=== PATIENT | female | born 1985 | race African-American/Black ===

== ENCOUNTER 2017-02-20 09:26 | Inpatient (IN) | payer OTHER ==
[~2017-02-20] VITALS: Ht 160 cm; Wt 81.0 kg
[2017-02-20] VITALS (7 sets, daily range): BP systolic 119–127; BP diastolic 62–70
[~2017-02-20 09:26] MED LIST: ENDOCET 5-3251 EACH PO; Motrin PO; NOHOMEMEDS; PRENATAL TABLE1 EAC3 PO; TAMIFLU75 MG PO; VENTOLIN HFA18 GM IH
[2017-02-20 11:42] LABS: EOSINOPHIL (%) 2.1 % (0-5); EOSINOPHIL COUNT 0.1 K/uL (0-0.3); HEMATOCRIT 30.3 % (36.0-46.0); IMMATURE GRANULOCYTE (%) 1.1 % (0.0-0.7); IMMATURE GRANULOCYTE COUNT 0.1 K/uL; INSTRUMENT ABS NEUTROPHIL CT 3.8 K/uL; LYMPHOCYTE COUNT 1.5 K/uL (1.0-2.8); MCH 26.2 PG (29.0-34.0); MCHC 32.3 G/DL (30.0-36.0); MEAN PLAT.VOLUME 9.3 uM^3 (9.5-12.4); MONOCYTE (%) 12.4 % (3-12); MONOCYTE COUNT 0.8 K/uL (0-0.8); NEUTROPHIL (%) 60.7 % (45-76); NEUTROPHIL COUNT 3.8 K/uL (1.8-6.4); PLATELET COUNT 231 K/uL (156-360); RBC DIS.WIDTH-CV 14.6 % (11.8-14.6); RBC DIS.WIDTH-SD 43.3 % (39-53); RED BLOOD COUNT 3.74 M/uL (3.80-5.20); WHITE BLOOD COUNT 6.3 K/uL (4.1-10.2)
[2017-02-20 12:46] LABS: METH RESISTANT S AUREUS PCR NEGATIVE (NEGATIVE)
[2017-02-20 12:49] LABS: PROBE CHECK PASS; SPECIMEN PROCESSING CONTROL PASS
[2017-02-21 00:30] VITALS: BP 109/55
[2017-02-21 01:30] VITALS: BP 123/63
[2017-02-21 07:29] VITALS: BP 120/56
[2017-02-21 07:58] LABS: EOSINOPHIL (%) 0.8 % (0-5); EOSINOPHIL COUNT 0.1 K/uL (0-0.3); HEMATOCRIT 26.8 % (36.0-46.0); IMMATURE GRANULOCYTE (%) 0.5 % (0.0-0.7); IMMATURE GRANULOCYTE COUNT 0.1 K/uL; INSTRUMENT ABS NEUTROPHIL CT 7.5 K/uL; LYMPHOCYTE COUNT 1.1 K/uL (1.0-2.8); MCH 25.1 PG (29.0-34.0); MCHC 31.7 G/DL (30.0-36.0); MCV 79.3 FL (83-99); MEAN PLAT.VOLUME 9.5 uM^3 (9.5-12.4); MONOCYTE (%) 11.9 % (3-12); MONOCYTE COUNT 1.2 K/uL (0-0.8); NEUTROPHIL (%) 75.6 % (45-76); NEUTROPHIL COUNT 7.5 K/uL (1.8-6.4); NRBC (%) 0.2 /100 WBC (0-0); PLATELET COUNT 214 K/uL (156-360); RBC DIS.WIDTH-CV 14.6 % (11.8-14.6); RBC DIS.WIDTH-SD 41.6 % (39-53); RED BLOOD COUNT 3.38 M/uL (3.80-5.20); WHITE BLOOD COUNT 9.9 K/uL (4.1-10.2)
[2017-02-21 11:22] VITALS: BP 120/58
[2017-02-21 15:47] VITALS: BP 118/58
[2017-02-22 02:48] VITALS: BP 117/54
[2017-02-22 07:27] VITALS: BP 114/54
[2017-02-22] MEDS ORDERED: IBUPROFEN800 MG PO (08:59)
[2017-02-22] MEDS ORDERED: ENDOCET 5-3251 EACH PO (08:59)
[2017-02-22] MEDS ORDERED: FERROUS SULFAT325 MG PO (08:59)
== END 2017-02-22 13:45 | disposition home or self-care (01) | DRG 765 ==
LOC: 2WEST 09:26 → 2SOUTH 09:48 → 2WEST 02-22 13:45
PROVIDERS: Obstetrics & Gynecology
DX: O34.219 Maternal care for unspecified type scar from previous cesarean delivery (principal); Z87.891 Personal history of nicotine dependence; O99.824 Streptococcus B carrier state complicating childbirth; J45.909 Unspecified asthma, uncomplicated; O99.52 Diseases of the respiratory system complicating childbirth; Z37.0 Single live birth; N39.41 Urge incontinence; O75.89 Other specified complications of labor and delivery; Z3A.39 39 weeks gestation of pregnancy; Z30.2 Encounter for sterilization; O99.02 Anemia complicating childbirth; D62 Acute posthemorrhagic anemia; O99.89 Other specified diseases and conditions complicating pregnancy, childbirth and the puerperium; N73.6 Female pelvic peritoneal adhesions (postinfective); D50.9 Iron deficiency anemia, unspecified
CPT/HCPCS: 85025; 86900; 86901; 87641; J0690; J1885; J2274; J2405; J7120

== ENCOUNTER 2017-04-15 06:12 | Day surgery (SDC) | payer OTHER ==
[~2017-04-15] VITALS: Ht 160 cm; Wt 72.6 kg
[~2017-04-15 06:12] MED LIST changes: +FERROUS SULFAT325 MG PO; +IBUPROFEN800 MG PO
[2017-04-15 06:40] VITALS: BP 119/68
[2017-04-15 07:27] LABS: HEMATOCRIT 38.5 % (36.0-46.0); MCV 77.3 FL (83-99)
[2017-04-15 08:17] LABS: METH RESISTANT S AUREUS PCR NEGATIVE (NEGATIVE); PROBE CHECK PASS; SPECIMEN PROCESSING CONTROL PASS
[2017-04-15] MEDS ORDERED: MOTRIN800 MG PO (09:23)
[2017-04-15 12:49] VITALS: BP 129/69
[2017-04-15 13:35] VITALS: BP 134/69
== END 2017-04-15 14:00 | disposition home or self-care (01) ==
LOC: SDC 06:12
PROVIDERS: Obstetrics & Gynecology
PROC: 0UL74CZ Occlusion of Bilateral Fallopian Tubes with Extraluminal Device, Percutaneous Endoscopic Approach (ICD-10-PCS; principal; 2017-04-15)
DX: Z30.2 Encounter for sterilization (principal); K66.0 Peritoneal adhesions (postprocedural) (postinfection); J45.909 Unspecified asthma, uncomplicated; Z87.891 Personal history of nicotine dependence
CPT/HCPCS: 84702; 85014; 85018; 86850; 86900; 86901; 87641; J1100; J1170; J1885; J2250; J2405; J2710; J3010